=== PATIENT | female | born 1965 ===

== ENCOUNTER 2016-09-04 18:43 | Emergency (ER) | payer SELFPAY ==
[~2016-09-04] VITALS: Ht 172.7 cm; Wt 72.7 kg
[2016-09-04 18:48] VITALS: BP 146/85; PULSE 85; RESP 24; O2SAT 99
[2016-09-04 19:46] LABS: BASOPHILS % (AUTO) 1.1 % (0-3); EOSINOPHILS % (AUTO) 3.3 % (0-5); MONOCYTES % (AUTO) 7.3 % (4-12); Mean Corpuscular Hemoglobin 30.6 pg (27.0-35.0); Mean Corpuscular Volume 92.4 fL (81-100); NEUTROPHILS % (AUTO) 42.7 % (40-74); Platelet Count 355 bil/L (150-400)
--- NOTE | 2016-09-04 21:35 | ED.REPORT ---
HPI-Psychiatric Illness Date of Service Sep 04, 2016 ED Provider: Dr. Adalid Willis 51-year-old female history of anxiety presents with acute anxiety attack. Evidently her and her are going through some issues with the reading of the will that they have been left out of. I will with this has her very upset. She is convinced that her [id number] is conspiring to have her and her removed from the will completely. Tonight she just could not take it anymore and she started to freak out. She presents now requesting something for anxiety. She denies having any suicidal homicidal ideations. Nursing Notes Stated Complaint: ANXIETY Chief Complaint: Psychiatric Complaint Nursing Notes Reviewed: Yes Allergies: Coded Allergies: Penicillins (Verified Allergy, Unknown, 09/04/16) codeine (Verified Allergy, Unknown, 09/04/16) throat closes lidocaine (Verified Allergy, Unknown, 09/04/16) throat closes Uncoded Allergies: STRAWBERRIES (Allergy, Unknown, 09/04/16) throat closes General Time Seen by MD: 21:35 Chief Complaint Other (panic attack) Hx Obtained From: Patient, Spouse Arrived By: Walk-in Onset Occurred: Just prior to arrival Context of Onset: Other (problem with family') Symptom Duration: Since onset Risk-Psychiatric Illness Suicide Risk Stratification RF Statements: Risk factors reviewed Past Medical History Past Medical History denies Past Surgical History denies Social History Alcohol Use: Denies alcohol use Drug Use: Denies drug use Other Social History: Ambulatory Status Independent Review of Systems Psychiatric: Reports: Agitation, Anxiety, Stress, Denies: Hallucinations, auditory, Hallucinations, visual, Homicidal ideation , Hostile, Suicidal ideation Complete sys rev & neg: except as marked. Physical Exam Physical Exam Notes: not suicidal not homicidal Initial Vital Signs Vital Signs (First) Date Time Temp Pulse Resp B/P Pulse Ox O2 Delivery O2 Flow Rate FiO2 09/04/16 18:48 36.7 85 24 146/85 99 Room Air Initial VS: Reviewed Head / Eyes: Atraumatic, Normocephalic, PERRL ENT: Mucous membranes moist, Conjunctiva normal, No scleral icterus Neck: Supple, Non-tender, Full range of motion Respiratory: Breath sounds normal, Clear to auscultation, No respiratory distress Cardiovascular: Regular rate & rhythm, Heart sounds normal, Intact distal pulses Abdomen / GI: Soft, Non-tender, No guarding, No rebound, No distention Back: No CVA tenderness Lymphatic: No lymphadenopathy Extremities: Vascular intact, Neuro intact, No swelling, No tenderness Skin: Warm, Dry, No cyanosis Behavior: Positive: Anxious, Tearful Neurologic: Oriented X3, Speech NL, No motor deficits, No sensory deficits Psychiatric: Not suicidal, Not homicidal Abnormal Mood/Affect: Positive: Anxious mildly paranoid distraught Interpretation & Diagnostics Lab Results Interpretation Result Diagram: 09/04/16192909/04/161929 Test 09/04/16 19:30 White Blood Count 6.4th/mm3 (3.8-10.1) Red Blood Count 4.09mil/mm3 (3.90-5.20) Hemoglobin 12.5g/dL (12.0-15.6) Hematocrit 37.8% (35.0-46.0) Mean Corpuscular Volume 92.4fL (81-100) Mean Corpuscular Hemoglobin 30.6pg (27.0-35.0) Mean Corpuscular Hemoglobin Concent 33.1% (32.0-37.0) Red Cell Distribution Width 13.8% (12.3-15.4) Platelet Count 355bil/L (150-400) Neutrophils (%) (Auto) 42.7% (40-74) Lymphocytes (%) (Auto) 45.6% (14-46) Monocytes (%) (Auto) 7.3% (4-12) Eosinophils (%) (Auto) 3.3% (0-5) Basophils (%) (Auto) 1.1% (0-3) Sodium Level 136mEq/L (134-144) Potassium Level 3.4mEq/L (3.5-5.2) Chloride Level 101mEq/L (97-108) Carbon Dioxide Level 21mmol/L (18-29) Blood Urea Nitrogen 12mg/dL (6-24) Creatinine 0.96mg/dL (0.57-1.00) Estimat Glomerular Filtration Rate 88mL/min (>59) Glucose Level 105mg/dL (60-99) Calcium Level 8.7mg/dL (8.5-10.1) Total Bilirubin 0.4mg/dL (0.0-1.2) Aspartate Amino Transf (AST/SGOT) 22U/L (0-50) Alanine Aminotransferase (ALT/SGPT) 13U/L (0-32) Alkaline Phosphatase 84U/L (25-150) Total Protein 7.1g/dL (6.4-8.4) Albumin 4.1g/dL (3.4-5.0) Thyroid Stimulating Hormone (TSH) 0.302uIU/mL (0.450-4.500) Hold Kelly Top Tube Received (Received) Alcohol, Quantitative < 10mg/dL (0-10) Re-Eval/Medical Decision Med Decision/Clinical Course Mrs. Crespo was medicated and she felt much better. She slept for about 3 hours. Afterward she was calm and collected. She denied being suicidal or homicidal. She exhibited no signs of acute psychosis. She felt comfortable be discharged home with her . I have given her outpatient follow-up to both [facility] as well as residency clinic. I will place her on a short course of Xanax for her extreme anxiety symptoms. Routine sedative warnings were given. She is return if she has any problems or any worsening symptoms. Counseled Regarding: Diagnosis, Lab results, Need for follow-up, When/why to return to ED Discharge & Departure Impression: Primary Impression: Anxiety Additional Impression: Acute situational disturbance )( Condition at Discharge: No danger to self, No danger to others, No suicidal ideation, No homicidal ideation Disposition: Home Patient Instructions: Generalized Anxiety Disorder (ED) Additional Instructions: Take 1 Xanax every 8 hours needed for anxiety. Try to get some rest. Do not drive tonight or while taking the Xanax. Do not consume any alcohol or take any other sedatives will taking the Xanax. Follow-up residency clinic or with [facility]. Call tomorrow. If you develop any suicidal or homicidal ideations or if you seem to be getting sicker in any way then come back to her department. Return if you feel that you are having a medical or psychiatric emergency. Referrals: [facility] (PCP) [facility] [employer] Attestation Portion of this note were transcribed by Magali Llanes. I, Dr. Willis, personally performed the history, physical exam, and medical decision-making: I reviewed and confirmed the accuracy for the information in the transcribed note. Signed by: kavita Denney, 09/05/16 0200 copies to: [facility] Adalid Willsi DO Sep 04, 2016 21:35 Magali Llanes Sep 04, 2016 21:41
[2016-09-04 23:15] VITALS: BP 136/76; PULSE 90; RESP 20; O2SAT 99
[2016-09-05 00:48] VITALS: BP 140/82; PULSE 86; RESP 18; O2SAT 100
[2016-09-05 01:32] VITALS: BP 132/76; PULSE 90; RESP 18; O2SAT 99
== END 2016-09-05 01:33 | disposition home or self-care (01) ==
LOC: EDBD 18:43 → SED 18:43
DX: F41.9 Anxiety disorder, unspecified (principal); F43.0 Acute stress reaction; Z88.0 Allergy status to penicillin; Z88.5 Allergy status to narcotic agent; Z88.8 Allergy status to other drugs, medicaments and biological substances; Z91.018 Allergy to other foods
CPT/HCPCS: 36415; 80053; 82075; 84443; 85025; 96372; 99284; G0480; J2060